=== PATIENT | female | born 1965 | race Caucasian/White ===

== ENCOUNTER → 2018-12-14 10:33 | Outpatient (CLI) | payer OTHER, SELFPAY ==
--- NOTE | 2018-12-14 10:41 | BI_ITS ---
MAMMOGRAPHY - BILATERAL SCREENING REASON FOR EXAM: Female, 53 years old. Routine annual screening examination. PERTINENT HISTORY: Grandmother with breast cancer. TECHNIQUE: Digital bilateral breast haroldo (3D mammographic acquisition) in the CC and MLO projections. 2-D mediolateral oblique (MLO) and craniocaudad (CC) views of both breasts were obtained. CAD: Full Field Digital Mammography with Computer Added Detection was performed. COMPARISON: Comparison is made with prior study January 18, 2017 and February 23, 2015. FINDINGS: Breast Composition: The breasts are heterogeneously dense, which may obscure small masses. There are no dominant masses or suspicious calcifications. No other significant abnormalities are identified. There has been no significant change since the prior study. BI/SCREENING MAMM (CAD), BILAT IMPRESSION: Stable bilateral screening mammogram. Yearly follow-up mammogram recommended. (A) ASSESSMENT CATEGORY: BIRADS Category 1: Negative. A letter regarding these results will be sent to the patient by the facility within 30 days. Approximately 10% of breast cancers are not detected by mammography. A normal mammogram should not delay biopsy of a clinically suspicious abnormality. [id number] Electronically Signed: Eric Tamez, at 12:46 EDT , Service support ,
== END ==
PROVIDERS: Family Provider Family Medicine; PCP Family Medicine; Referring Provider Family Medicine; Visit Provider Family Medicine
DX: Z12.31 Encounter for screening mammogram for malignant neoplasm of breast (principal)
CPT/HCPCS: 77063; 77067

== ENCOUNTER → 2019-05-22 | Outpatient (CLI) | payer OTHER, SELFPAY ==
[2017-01-30 08:10] VITALS: BMI 24.9
[2019-05-22 13:00] LABS: Cholesterol 212 mg/dL (200); High Density Lipoprotein 69 mg/dL; Triglycerides 132 mg/dL; Very Low Density Lipoprotein 26 mg/dL (5-40)
== END | disposition home or self-care (01) ==
LOC: MFPLAB 09:45
PROVIDERS: Family Provider Family Medicine; PCP Family Medicine; Referring Provider Family Medicine; Visit Provider Family Medicine
DX: Z00.00 Encounter for general adult medical examination without abnormal findings (principal)
CPT/HCPCS: 36415; 80061

== ENCOUNTER → 2020-06-15 10:23 | Outpatient (CLI) | payer OTHER, SELFPAY ==
--- NOTE | 2020-06-15 10:25 | BI_ITS ---
MAMMOGRAPHY - BILATERAL SCREENING REASON FOR EXAM: Female, 54 years old. Routine annual screening examination. PERTINENT HISTORY: Mother with breast cancer. Grandmother with breast cancer. TECHNIQUE: Digital bilateral breast kit (3D mammographic acquisition) in the CC and MLO projections. 2-D mediolateral oblique (MLO) and craniocaudad (CC) views of both breasts were obtained. CAD: Full Field Digital Mammography with Computer Added Detection was performed. COMPARISON: Comparison is made with prior study dated 12/14/2018 and 01/18/2017. FINDINGS: Breast Composition: The breasts are heterogeneously dense, which may obscure small masses. There are no dominant masses or suspicious calcifications. Stable small benign appearing bilateral axillary lymph nodes. No other significant abnormalities are identified. There has been no significant change since the prior study. BI/SCREEN MAMM (CAD) W/KIT BILAT IMPRESSION: Stable bilateral screening mammogram. Yearly follow-up mammogram recommended. (A) ASSESSMENT CATEGORY: BIRADS Category 2: Benign. A letter regarding these results will be sent to the patient by the facility within 30 days. Approximately 10% of breast cancers are not detected by mammography. A normal mammogram should not delay biopsy of a clinically suspicious abnormality. [id number] Electronically Signed: Eric Tamez, at 12:24 EDT , Service support ,
== END ==
PROVIDERS: PCP Family Medicine; Referring Provider Family Medicine; Visit Provider Family Medicine
DX: Z12.31 Encounter for screening mammogram for malignant neoplasm of breast (principal)
CPT/HCPCS: 77063; 77067

== ENCOUNTER → 2021-05-26 11:14 | Outpatient (CLI) | payer OTHER, SELFPAY ==
[2021-05-31 16:43] LABS: HPV APTIMA, High Risk Negative (Negative)
== END ==
PROVIDERS: PCP Family Medicine; Referring Provider Family Medicine; Visit Provider Family Medicine
DX: Z12.4 Encounter for screening for malignant neoplasm of cervix (principal)
CPT/HCPCS: 87624; 88175; G0145

== ENCOUNTER → 2021-06-16 08:34 | Outpatient (CLI) | payer OTHER, SELFPAY ==
--- NOTE | 2021-06-16 08:36 | BI_ITS ---
MAMMOGRAPHY - BILATERAL SCREENING REASON FOR EXAM: Female, 55 years old. Routine annual screening examination. PERTINENT HISTORY: Mother with breast cancer. Grandmother with breast cancer. TECHNIQUE: Digital bilateral breast kit (3D mammographic acquisition) in the CC and MLO projections. 2-D mediolateral oblique (MLO) and craniocaudad (CC) views of both breasts were obtained. CAD: Full Field Digital Mammography with Computer Added Detection was performed. COMPARISON: Comparison is made with prior study 06/15/2020 and 12/14/2018. FINDINGS: Breast Composition: The breasts are heterogeneously dense, which may obscure small masses. There are no dominant masses or suspicious calcifications. No other significant abnormalities are identified. There has been no significant change since the prior study. BI/SCRN MAMM (CAD)W/KIT BILAT IMPRESSION: Stable bilateral screening mammogram. Yearly follow-up mammogram recommended. (A) ASSESSMENT CATEGORY: BIRADS Category 1: Negative. A letter regarding these results will be sent to the patient by the facility within 30 days. Approximately 10% of breast cancers are not detected by mammography. A normal mammogram should not delay biopsy of a clinically suspicious abnormality. [id number] Electronically Signed: Eric Tamez MD at 9:14 EDT , Service support ,
== END ==
PROVIDERS: PCP Family Medicine; Referring Provider Family Medicine; Visit Provider Family Medicine
DX: Z12.31 Encounter for screening mammogram for malignant neoplasm of breast (principal)
CPT/HCPCS: 77063; 77067

== ENCOUNTER → 2022-05-30 | Outpatient (CLI) | payer OTHER, SELFPAY ==
[2022-05-30 12:22] LABS: Absolute Lymphocyte Count 2.14 X10^3/uL (0.83-4.51); Absolute Neutrophil Count 3.3 X10^3/uL (2.0-7.7); Basophil# 0.04 X10^3/uL; Basophil% 0.6 % (0-1); Eosinophil# 0.09 X10^3/uL; Eosinophils% 1.5 % (0-5); Hematocrit 42.8 % (37-47); Hemoglobin 13.7 g/dL (12.0-15.0); Lymphocyte # 2.14 X10^3/ul (0.83-4.51); Lymphocyte % 34.7 % (19-41); Mean Corpuscular Volume 96.8 fL (81-99); Monocyte# 0.58 X10^3/uL; Monocyte% 9.4 % (0-10); NRBC Flagged by Analyzer 0 % (0-5); Neutrophil % 53.5 % (47-70); Platelet Count 282 K/mm3 (150-450); RBC Distribution Width CV 12.9 % (11.6-14.6); RBC Distribution Width SD 46.1 fl (35.1-43.9); Red Blood Count 4.42 M/mm3 (4.2-5.4); White Blood Count 6.2 K/mm3 (4.4-11.0)
[2022-05-30 12:51] LABS: ALB/GLOB Ratio 1.3 RATIO (0.9-2.4); AST(SGOT) 13 U/L (15-37); Alanine Aminotransfer ALT/SGPT 27 U/L (13-56); Albumin, Serum 3.9 g/dL (3.2-5.0); Alkaline Phosphatase 62 U/L (45-117); Anion Gap 8 (5-15); BUN 9 mg/dL (7-18); BUN/Creat Ratio 10.7 RATIO (10-20); Calcium,Total 9.5 mg/dL (8.5-10.1); Chloride 107 mmol/L (98-107); Cholesterol 196 mg/dL (200); Creatinine, Serum 0.84 mg/dL (0.55-1.02); EST Glomerular Filtration Rate 74 mL/min (>60); Est Glom Filt Rate - Afr Amer 89 mL/min (>60); Globulin 3.1 g/dL (2.2-4.2); Glucose 96 mg/dL (74-106); High Density Lipoprotein 66 mg/dL; Potassium 4.2 mmol/L (3.5-5.1); Sodium Level 144 mmol/L (136-145); Thyroid Stim Hormone (TSH) 0.65 uIU/mL (0.358-3.74); Triglycerides 107 mg/dL; Very Low Density Lipoprotein 21 mg/dL (5-40)
== END | disposition home or self-care (01) ==
LOC: MFPLAB 09:42
PROVIDERS: PCP Family Medicine; Visit Provider Family Medicine
DX: Z00.00 Encounter for general adult medical examination without abnormal findings (principal); R63.5 Abnormal weight gain; Z72.0 Tobacco use; Z13.220 Encounter for screening for lipoid disorders
CPT/HCPCS: 36415; 80053; 80061; 84443; 85025

== ENCOUNTER → 2022-06-11 | Outpatient (CLI) | payer OTHER, SELFPAY ==
--- NOTE | 2022-06-11 08:44 | CT_ITS ---
EXAM: CT CHEST, LUNG CANCER SCREENING WITHOUT INTRAVENOUS CONTRAST CLINICAL INDICATION: and gt;30y pk over lifetime. active tobacco use TECHNIQUE: Helically acquired images were obtained of the chest without intravenous contrast using low dose (LDCT) lung cancer screening protocol. This CT exam was performed using one or more of the following dose reduction techniques: automated exposure control, adjustment of the mA and/or kV according to patient size, and/or use of iterative reconstruction technique. This report was created using [employer] report generation technology. COMPARISON: None. FINDINGS: LUNGS AND PLEURAL SPACES: Linear scarring/atelectasis noted within the right middle and left lower lobes of the lung. Lungs are otherwise clear. No evidence of lung mass or suspicious pulmonary nodule. No pleural effusion or thickening. No pneumothorax. HEART: Normal. Heart size is normal. No pericardial effusion. No significant coronary artery calcifications. MEDIASTINUM: Normal. No mediastinal or hilar adenopathy. Esophagus is unremarkable. No hiatal hernia. THYROID: Normal. No thyroid lesions. BONES/JOINTS: Normal. No suspicious lytic or blastic abnormality. VASCULATURE: Normal. Thoracic aorta is non-dilated. LYMPH NODES: Normal. No enlarged lymph nodes. LIVER: Multiple low-density liver lesions suggestive of cysts. CT/Low Dose CT Lung Screening IMPRESSION: 1. No evidence of lung mass or nodule. 2. ACR Lung CT Screening Reporting T Data System (Lung-RADS) score: 1 - Recommend continued annual screening with low-dose CT (LDCT) in 12 months. Electronically Signed: Mario Keita MD at 10:29 EDT ,
== END | disposition home or self-care (01) ==
LOC: CT 08:42
PROVIDERS: PCP Family Medicine; Referring Provider Family Medicine; Visit Provider Family Medicine
DX: F17.200 Nicotine dependence, unspecified, uncomplicated (principal)
CPT/HCPCS: 71271

== ENCOUNTER → 2022-06-17 | Outpatient (CLI) | payer OTHER, SELFPAY ==
--- NOTE | 2022-06-17 09:51 | BI_ITS ---
MAMMOGRAPHY - BILATERAL SCREENING REASON FOR EXAM: Female, 56 years old. Routine annual screening examination. PERTINENT HISTORY: Mother with breast cancer. Grandmother with breast cancer. TECHNIQUE: Digital bilateral breast kit (3D mammographic acquisition) in the CC and MLO projections. 2-D mediolateral oblique (MLO) and craniocaudad (CC) views of both breasts were obtained. CAD: Full Field Digital Mammography with Computer Added Detection was performed. COMPARISON: Comparison is made with prior examination dated 06/16/2021 and 06/15/2020. FINDINGS: Breast Composition: The breasts are heterogeneously dense, which may obscure small masses. There are no dominant masses or suspicious calcifications. No other significant abnormalities are identified. There has been no significant change since the prior study. BI/SCRN MAMM (CAD)W/KIT BILAT IMPRESSION: Stable bilateral screening mammogram. Yearly follow-up mammogram recommended. (A) ASSESSMENT CATEGORY: BIRADS Category 1: Negative. A letter regarding these results will be sent to the patient by the facility within 30 days. Approximately 10% of breast cancers are not detected by mammography. A normal mammogram should not delay biopsy of a clinically suspicious abnormality. [id number] Electronically Signed: Erci Tamez MD at 11:08 EDT ,
== END | disposition home or self-care (01) ==
LOC: OPBI 09:50
PROVIDERS: PCP Family Medicine; Visit Provider Family Medicine
DX: Z12.31 Encounter for screening mammogram for malignant neoplasm of breast (principal)
CPT/HCPCS: 77063; 77067

== ENCOUNTER → 2022-09-29 | Outpatient (CLI) | payer OTHER, SELFPAY ==
--- NOTE | 2022-09-29 08:08 | MRI_ITS ---
STUDY: MRI BRAIN WITH AND WITHOUT CONTRAST (ATTENTION INTERNAL AUDITORY CANALS - I.A.C.''s) REASON FOR EXAM: Female, 56 years old. R HEARING LOSS, TINNITUS TECHNIQUE: Standardized multiplanar fat and water weighted pulse sequences were obtained. IV Yes Clariscan was administered for the contrast portion of the examination. COMPARISON: None. FINDINGS: Normal bilateral temporal bones. Normal bilateral internal auditory canals. There is no demonstrated intracanalicular or cisternal vestibular schwannoma (acoustic neuroma). There is no enhancement of the bilateral VIIth or VIIIth cranial nerves. Normal bilateral cochlea, vestibules and semicircular canals. Normal size of the ventricles and extra-axial spaces for the patient''s age. Normal white matter tracts of the supratentorial brain. Normal bilateral basal ganglia. Normal thalami. Normal flow voids within the major intracranial circulation suggesting patency by spin echo criteria. Normal venous enhancement. There is no enhancing intra-axial or extra-axial abnormality. Hypoplastic right sigmoid sinus and right jugular bulbs are developmental variations of normal. There is no extra-axial fluid accumulation. Normal sella turcica, pituitary gland, infundibular stalk, optic chiasm and hypothalamus. Normal tectal plate and pineal gland. Normal midbrain, edmundo and medulla. Normal cerebellum. Normal basal cisterns. No demonstrated orbital abnormality, within the constraints of a routine brain study. Normal visualized paranasal sinuses. Normal calvarium and skull base. Normal visualized soft tissue structures. Normal visualized upper cervical spine. MRI/Brain W/WO Contrast IMPRESSION: Normal unenhanced and enhanced MRI of the bilateral internal auditory canals (I.A.C''s). COMMENT: If right-sided tinnitus is pulsatile and dural AV fistula is a clinical consideration, cerebral arteriogram with bilateral external carotid arteriogram will be more helpful for further evaluation. Electronically Signed: Erik Hopkins MD at 9:35 EST ,
== END | disposition home or self-care (01) ==
PROVIDERS: PCP Family Medicine; Referring Provider Otolaryngology; Visit Provider Otolaryngology
DX: H90.41 Sensorineural hearing loss, unilateral, right ear, with unrestricted hearing on the contralateral side (principal)
CPT/HCPCS: 70553; A9575

== ENCOUNTER → 2023-06-20 | Outpatient (CLI) | payer OTHER, SELFPAY ==
--- NOTE | 2023-06-20 08:55 | BI_ITS ---
MAMMOGRAPHY - BILATERAL SCREENING REASON FOR EXAM: Female, 57 years old. Routine annual screening examination. PERTINENT HISTORY: Mother with breast cancer. Grandmother with breast cancer. History of prior left breast biopsy. TECHNIQUE: Digital bilateral breast kit (3D mammographic acquisition) in the CC and MLO projections. 2-D mediolateral oblique (MLO) and craniocaudad (CC) views of both breasts were obtained. CAD: Full Field Digital Mammography with Computer Added Detection was performed. COMPARISON: Comparison is made with prior study dated June 17, 2022 and June 16, 2021. FINDINGS: Breast Composition: The breasts are heterogeneously dense, which may obscure small masses. There are no dominant masses or suspicious calcifications. Stable small benign-appearing bilateral axillary lymph nodes. No other significant abnormalities are identified. There has been no significant change since the prior study. BI/SCRN MAMM (CAD)W/KIT BILAT IMPRESSION: Stable bilateral screening mammogram. Yearly follow-up mammogram recommended. (A) ASSESSMENT CATEGORY: BIRADS Category 2: Benign. A letter regarding these results will be sent to the patient by the facility within 30 days. Approximately 10% of breast cancers are not detected by mammography. A normal mammogram should not delay biopsy of a clinically suspicious abnormality. [id number] Electronically Signed: Eric Tamez MD at 10:07 EDT ,
== END | disposition home or self-care (01) ==
LOC: OPBI 08:54
PROVIDERS: PCP Family Medicine; Referring Provider Family Medicine; Visit Provider Family Medicine
DX: Z12.31 Encounter for screening mammogram for malignant neoplasm of breast (principal)
CPT/HCPCS: 77063; 77067

== ENCOUNTER → 2023-10-18 | Outpatient (CLI) | payer OTHER, SELFPAY ==
--- OUTSIDE RECORDS SUMMARY | 2023-10-18 07:53 | XMS RPT_ITS | CCD ---
Author Name Unknown Address [address] [place] [address] Organization [facility] Care Team Providers Care Lining Setter Name Role Phone Riya Barnes Unavailable Jamal Zimmerman Primary Care Provider Allergies Allergy Classification Reported Allergen(s) Allergy Type Date of Onset Reaction(s) Facility (1 source) predniSONE drug allergy 7 Rapid heart rate [place] [employer] [facility] Work Phone: Medications Completed/Discontinued Medications Medication Drug Class(es) Dates Sig (Normalized) Sig (Original) CALCIUM CARB-CHOLECALCIFEROL (1 source) take 1 tablet by kamaljit th once daily CALCIUM-VITAMIN D3 600-500 MG-UNIT CAPS One tablet by mouth daily CALCIUM CARB-CHOLECALCIFEROL [id number] Rebecca Jones MD MULTIPLE VITAMINS-MINERALS (2 sources) take 1 tablet by kamaljit th once daily MULTIVITAMIN WOMEN TABS One tablet by mouth daily MULTIPLE VITAMINS-MINERALS [id number] Rebecca Jones MD Problems Problem Classification Problem Date Documented Da te Episodic/Chronic Unclassified (1 source) Screening for malignant neoplasm of colon ; Translations: [Encounter for screening for malignant neoplasm of colon] Onset: 01-04-2017 01-04-2017 Results Test Name Value Interpretation Reference Range Facil ity Vital Signs Date Time Vital Sign Value Performing Clinician Facility 01-04-2017 13:03-0400 BMI (Body Mass Index) 25.07 kg/m2 Riya Barnes [employer] [facility] Work Phone: 01-04-2017 13:03-0400 Body Temperature 97.7 [degF] Riya Barnes [facility] [employer] [facility] Work Phone: 01-04-2017 13:03-0400 BP Diastolic 71 mm[Hg] Riya Barnes [place] [employer] [facility] Work Phone: 01-04-2017 13:03-0400 BP Systolic 105 mm[Hg] Riya Barnes [place] [employer] [facility] Work Phone: 01-04-2017 13:03-0400 Height 166.37 cm Riya Barnes [place] [employer] [facility] Work Phone: 01-04-2017 13:03-0400 Pulse (Heart Rate) 77 /min Riya Barnes [facility] [employer] [employer] [facility] Work Phone: 01-04-2017 13:03-0400 Pulse Oximetry 98 % Riya Barnes [place] [employer] [facility] Work Phone: 01-04-2017 13:03-0400 Respiratory Rate 16 /min Riya Barnes [place] [employer] [facility] Work Phone: 01-04-2017 13:03-0400 Weight 69.4 kg Riya Barnes [place] [employer] [facility] Work Phone: Encounters Encounter Date Encounter Type Care Provider Facility Start: 03-28-2011 End: 03-28-2011 Patient encounter procedure Sneha Fuller Work Phone: [facility] Start: 03-28-2011 Results Only Sneha Fuller Work Phone: [facility] Procedures Date Procedure Procedure Detail Performing Clinician Start: 04-20-2011 CONVERTED SURGICAL PATHOLOGY Sneha Fuller Work Phone: Start: 03-28-2011 CONVERTED SURGICAL PATHOLOGY Sneha Fuller Work Phone: Plan of Treatment Date Care Activity Detail Author Start: 05-19-2020 Influenza vaccination INFLUENZA (#1) [facility] Start: 01-30-2017 End: 01-30-2017 Appointment Appointment [employer] [facility] Work Phone: Start: 01-04-2017 End: 01-04-2017 [facility] Work Phone: Start: 01-04-2017 End: 01-04-2017 Follow Up Appt Other Follow Up Appt Other [employer] Work Phone: Start: 2014 SHINGRIX VACCINE (1 of 2) SHINGRIX VACCINE (1 of 2) [facility] Start: 2014 Tuberculosis screening COLORECTAL CANCER SCREENING,SEE MODIFIER [facility] Start: 2009 DIABETES SCREEN DIABETES SCREEN [facility] Start: 2009 LIPID SCREEN LIPID SCREEN [facility] Start: 2004 Mammography MAMMOGRAM [facility] Start: 1994 HPV TESTING HPV TESTING [facility] Start: 1985 PAP TESTING PAP TESTING [facility] Start: 1983 Urine microalbumin profile DTAP,TDAP,TD (1 - Tdap) [facility] Start: 1982 HEPATITIS C SCREENING HEPATITIS C SCREENING [facility] Start: 1982 HIV SCREENING HIV SCREENING [facility] Social History Date Type Detail Facility Tobacco smoking status NHIS Unknown if ev er smoked [facility] Sex Assigned At Not on file [facility] Additional Source Comments Source Comments (unrecognize d section and content) In the event this informatio n is protected by the Federal Confidentiality of Alcohol and Drug Abuse Patient Records regulations: The Federal rules restrict any use of the information to criminally investigate or prosecute any alcohol or drug abuse patient.[facility] FOR RECORDS PERTAINING TO PATIENTS WHO ARE OR HAVE BEEN ENROLLED IN A CHEMICAL DEPENDENCY/SUBSTANCEABUSE PROGRAM, SOME INFORMATION MAY BE OMITTED. This clinical summary was aggregated from multiple sources. Caution should be exercised in using it in the provision of clinical care. This summary normalizes information from multiple sources, and as a consequence, information in this document may materially change the coding, format and clinical context of patient data. In addition, data may be omitted in some cases. CLINICAL DECISIONS SHOULD BE BASED ON THE PRIMARY CLINICAL RECORDS. [facility] [employer] [facility]. provides no warranty or guarantee of the accuracy or completeness of information in this document.
--- NOTE | 2023-10-18 08:00 | CT_ITS ---
STUDY: LOW DOSE CT LUNG CANCER SCREENING REASON FOR EXAM: Female, 57 years old. STOPPED TOBACCO/CIGARETTES 2020, and gt; 30 PK YR RADIATION DOSAGE (If Supplied By Facility): CTDIvol = ( 2.39 ) mGy, DLP = ( 83.10 ) mGycm TECHNIQUE: No contrast was administered. Low dose technique was utilized (average mAS-38 and kVp 120). 1.25 mm axial source images with a slice interval of 1.25-mm were reconstructed in lung windows. 2.5 mm axial source images with a slice interval of 2.5-mm were reconstructed in lung windows. 5.0 mm axial source images with a slice interval of 5.0-mm were reconstructed in soft tissue windows. COMPARISON: Comparison is made with prior examination dated June 11, 2022. NODULES: No suspicious nodules seen. Emphysema: Mild degree of emphysematous changes. Stable mild linear scarring in the right middle lobe and left lower lobe. Endobronchial lesion: None Aorta: Unremarkable CORONARY ARTERIES: Coronary artery calcification is seen. Heart: Unremarkable Pulmonary artery: Mediastinal nodes: Other chest and abdominal findings: Hepatic cysts. CT/Low Dose CT Lung Screening IMPRESSION: Lung-RADS category 2 - Continue annual screening with LDCT in 12 months. IMPORTANT NOTES FOR USE: ACR Lung-RADS Version 1.1 Assessment Categories Release Date: 2018 Category: Coded 0-4 bases on nodule(s) with highest degree of suspicion. Negative screen is defined as categories 1 and 2; a positive screen is defined as categories 3 and 4. Category 3 and 4A nodules that are unchanged on interval CT should be coded as category 2, and individuals returned to screening in 12 months. Category 4X: Category 3 or 4 nodules with additional imaging findings that increase the suspicion of lung cancer, such as spiculation, GGN that doubles in size in 1 year, enlarged lymph notes, etc. Category Modifiers: S (significant finding unrelated to lung cancer) Electronically Signed: Eric Tamez MD at 10:22 EST ,
== END | disposition home or self-care (01) ==
LOC: CT 07:42
PROVIDERS: PCP Family Medicine; Referring Provider Family Medicine; Visit Provider Family Medicine
DX: Z12.2 Encounter for screening for malignant neoplasm of respiratory organs (principal); F17.211 Nicotine dependence, cigarettes, in remission
CPT/HCPCS: 71271

== ENCOUNTER 2023-11-20 06:40 | Day surgery (SDC) | payer OTHER, SELFPAY ==
--- OUTSIDE RECORDS SUMMARY | 2023-11-20 06:43 | XMS RPT_ITS | CCD ---
Author Name Unknown Address [address] [place] [address] Organization [facility] Care Team Providers Care Flight Teacher Name Role Phone Riya Barnes Unavailable Jamal Zimmerman Primary Care Provider Allergies Allergy Classification Reported Allergen(s) Allergy Type Date of Onset Reaction(s) Facility (1 source) predniSONE drug allergy 7 Rapid heart rate [place] [employer] [facility] Work Phone: Medications Completed/Discontinued Medications Medication Drug Class(es) Dates Sig (Normalized) Sig (Original) CALCIUM CARB-CHOLECALCIFEROL (1 source) take 1 tablet by kamaljit th once daily CALCIUM-VITAMIN D3 600-500 MG-UNIT CAPS One tablet by mouth daily CALCIUM CARB-CHOLECALCIFEROL [id number] Rebecca Jones MD MULTIPLE VITAMINS-MINERALS (2 sources) take 1 tablet by kamaljit th once daily MULTIVITAMIN WOMEN TABS One tablet by mouth daily MULTIPLE VITAMINS-MINERALS [id number] Rebecca Jones MD Problems Problem Classification Problem Date Documented Da te Episodic/Chronic Unclassified (1 source) Screening for malignant neoplasm of colon ; Translations: [Encounter for screening for malignant neoplasm of colon] Onset: 01-04-2017 01-04-2017 Results Test Name Value Interpretation Reference Range Facil ity Vital Signs Date Time Vital Sign Value Performing Clinician Facility 01-04-2017 13:03-0400 BMI (Body Mass Index) 25.07 kg/m2 Riya Barnes [employer] [facility] Work Phone: 01-04-2017 13:03-0400 Body Temperature 97.7 [degF] Riya Barnes [facility] [email or web address] [facility] Work Phone: 01-04-2017 13:03-0400 BP Diastolic 71 mm[Hg] Riya Barnes [place] [employer] [facility] Work Phone: 01-04-2017 13:03-0400 BP Systolic 105 mm[Hg] Riya Barnes [place] [employer] [facility] Work Phone: 01-04-2017 13:03-0400 Height 166.37 cm Riya Barnes [place] [employer] [facility] Work Phone: 01-04-2017 13:03-0400 Pulse (Heart Rate) 77 /min Riya Barnes [facility] [email or web address] [facility] Work Phone: 01-04-2017 13:03-0400 Pulse Oximetry 98 % Riya Barnes [place] [employer] [facility] Work Phone: 01-04-2017 13:03-0400 Respiratory Rate 16 /min Riya Barnes [place] [email or web address] [facility] Work Phone: 01-04-2017 13:03-0400 Weight 69.4 kg Riya Barnes [place] [employer] [facility] Work Phone: Encounters Encounter Date Encounter Type Care Provider Facility Start: 03-28-2011 End: 03-28-2011 Patient encounter procedure Sneha Fuller Work Phone: [facility] Start: 03-28-2011 Results Only Sneha Fuller Work Phone: [facility] Procedures Date Procedure Procedure Detail Performing Clinician Start: 04-20-2011 CONVERTED SURGICAL PATHOLOGY Sneha Fuller Work Phone: Start: 03-28-2011 CONVERTED SURGICAL PATHOLOGY Sneha Fuller Work Phone: Plan of Treatment Date Care Activity Detail Author Start: 05-19-2020 Influenza vaccination INFLUENZA (#1) [facility] Start: 01-30-2017 End: 01-30-2017 Appointment Appointment [employer] [facility] [email or web address] [facility] Work Phone: Start: 01-04-2017 End: 01-04-2017 Diagnostic colonoscopy Colonoscopy [facility] [email or web address] [facility] Work Phone: Start: 01-04-2017 End: 01-04-2017 Follow Up Appt Other Follow Up Appt Other [employer] Work Phone: Start: 2014 SHINGRIX VACCINE (1 of 2) SHINGRIX VACCINE (1 of 2) [facility] Start: 2014 Tuberculosis screening COLORECTAL CANCER SCREENING,SEE MODIFIER [facility] Start: 2009 DIABETES SCREEN DIABETES SCREEN [facility] Start: 2009 LIPID SCREEN LIPID SCREEN [facility] Start: 2004 Mammography MAMMOGRAM [facility] Start: 1994 HPV TESTING HPV TESTING [facility] Start: 1985 PAP TESTING PAP TESTING [facility] Start: 1983 Urine microalbumin profile DTAP,TDAP,TD (1 - Tdap) [facility] Start: 1982 HEPATITIS C SCREENING HEPATITIS C SCREENING [facility] Start: 1982 HIV SCREENING HIV SCREENING [facility] Social History Date Type Detail Facility Tobacco smoking status NHIS Unknown if ev er smoked [facility] Sex Assigned At Not on file [facility] Additional Source Comments Source Comments (unrecognize d section and content) In the event this informatio n is protected by the Federal Confidentiality of Alcohol and Drug Abuse Patient Records regulations: The Federal rules restrict any use of the information to criminally investigate or prosecute any alcohol or drug abuse patient.[facility] FOR RECORDS PERTAINING TO PATIENTS WHO ARE [...] BE BASED ON THE PRIMARY CLINICAL RECORDS. [facility] [employer] provides no warranty or guarantee of the accuracy or completeness of information in this document.
--- NOTE | 2023-11-20 07:02 | HP.PCM_ITS ---
[facility] - General General Date of Service: 11/20/23 HPI Narrative NESTOR SIFUENTES, is a 58 F who presents presents for colonoscopy due to history of colon polyps. Patient last colonoscopy was October 2016 patient 2 polyps at that time and diverticulosis. Patient's father did have colon cancer at age 72. Patient's bowel movements daily denies any blood. Patient denies any chronic abdominal pain/nausea/vomiting/reflux. [facility] Medical History (Updated 11/20/23 @ 07:[address] Rebecca Jones MD) Diverticulosis of colon Family history of colon cancer in father Former smoker GERD (gastroesophageal reflux disease) Non-smoker Personal history of colonic polyps Post-menopausal Wears dentures Wears glasses Home Medications multivitamin (Multiple Vitamins tablet) 1 ea PO DAILY 01/25/17 [History Last Taken 11/19/23] lactobacillus combination no.4 3 billion cell capsule (Probiotic) 3,000 mmu cells PO DAILY 10/09/23 [History Last Taken 11/19/23] Allergy/AdvReac Type Severity Reaction Status Date / Time prednisone AdvReac Other Verified 11/20/23 06:52 Family History (Updated 10/09/23 @ 12:50 by Raisa Alvarez) Father Colon cancer Mother Breast cancer Surgical History Hx of colonoscopy Social History (Updated 10/09/23 @ 12:51 by Raisa Alvarez) household members: spouse current occupational status: employed current occupation: [employer] Smoking Status: Former smoker substance use type: does not use Past Medical/Surgical History Planned Operation Planned Operative Procedure/s: COLONOSCOPY-OA S.O.S: No Previous Hospitalizations/Surgeries HX Hospitalizations: No HX of Surgeries: 1985 Any Problems With Anesthesia: No You/Your Family Experience Fever (Hyperthermia) With Anes: No Cholinesterase deficiency: No Cardiovascular Hx Chest Pain within Last 2 months: No Hx of Irregular Heartbeat and/or Afib: No Hx Heart Attack: No Hx Congestive Heart Failure: No Hx Rheumatic Fever: No Hx Hypertension: No Hx Internal Defibrillator: No Hx Pacemaker: No Hx Cardiac Catheterization: No Hx Cardiac Surgery/Stents/Etc.: No Hx Stress Test: No Hx Pain in Legs when Walking/Leg Cramps: No Respiratory Chronic Cough: No HX of Shortness of Breath: No Hoarseness: No Hx Chronic Obstructive Pulmonary Disease (COPD): No Hx Asthma: No Hx Emphysema: No Hx Sleep Apnea: No Hx Respiratory Tract Infection/Cold (presently): No Do You Snore Loudly (louder than talking or can be heard): No Do You Often Feel Tired/ Fatigued/ Sleepy Dring Daytime?: No Has Anyone Observed You Stop Breathing During Sleep?: No Result (for STOP score): Negative Smoking Status: Former smoker Gastrointestinal Hx Gastrointestinal Disorders: No Hx Gastrointestinal Bleed: No Hx Ulcer: No Hx Hiatal Hernia: No Difficulty Chewing/Swallowing: No Special diet followed at home: No Hx Unplanned Weight Loss of 20#: No HX Unplanned Weight Gain of 20#: No Neurological Hx Seizures: No HX Syncope/Blackout Spells/Unconsciousness: No Hx Transient Ischemic Attacks (TIA): No Hx Multiple Sclerosis: No Hx Parkinson's Disease: No Hx Head/Neck Injury: No Hx Headaches: No Hx Back Injury/Pain: No Recent Onset of Speech Difficulty: No Restless Legs: No Does patient have nerve stimulator: No Blood Disorder Hx Leukemia: No Bleeding Tendencies: No Hx Deep Vein Thrombosis: No Hx High Cholesterol: No Blood Transmitted Disease: No Hx Hepatitis: No Hx Cirrhosis: No Hx Anemia: No Hx Blood Disorders: No Reproduction Is Patient Lactating: No Hx Hysterectomy: No Hx Tubal Ligation: No Are You Post Menopause: Yes Genitourinary Hx Renal Disease: No Musculoskeletal Hx Arthritis: No Hx Rheumatoid Arthritis: No Hx Gout: No Recent Onset of an Orthopedic Problem: No Endocrine Hx Diabetes: No Thyroid Disease: No Hx Steroid Therapy: No Psycho/Social Hx Substance Use: No Hx Alcohol Use: No Hx Anxiety: No Hx Depression: No Mental Illness: No Hx Dementia: No Miscellaneous Hx Cancer: No Recent Exposure to Contagious Disease: No Hx of C-Diff: No Any Loose Teeth: No (DENTURES) Allergies prednisone Adverse Reaction (Verified 11/20/23 06:52) Other VERY FAST HEART RATE Discharge Is Pt Admitted From a Group Home, or a Intermediate: No After D/C, Where Do you Plan to Go: Return Home Physical Exam Const alert, oriented x3 and no apparent distress HEENT normocephalic and head/scalp atraumatic Resp normal respiratory effort Cardio regular rate GI soft to palpation and non-tender; Negative for non-distended Palpation: Negative for guarding Extremity no clubbing, cyanosis or edema Skin no rashes or lesions noted Neuro CN's II-XII intact bilaterally Psych mental status grossly normal Assessment & Plan Assessment/Plan (1) Personal history of colonic polyps: Surgery Risks - Colonoscopy I discussed with the patient the risks of the procedure: Yes Risks Include but are not Limited To: Risks include but are not limited to: Bleeding, perforation requiring further surgery, inability to complete colonoscopy requiring barium enema.
[2023-11-20 07:07] VITALS: BP 116/70; PULSE 68; RESP 17; TEMP 35.9; O2SAT 100; BMI 27.8
[2023-11-20] MEDS: Lactated Ringers 1,000 ML 15 ML IV (07:07)
--- NOTE | 2023-11-20 08:15 | COLBX_PTH ---
PATHOLOGY RESULTS PATIENT: NESTOR SIFUENTES LOC: EN U#:[id number] AGE/SX: 58/F ROOM: RE11/20/[address]: Dr. Rebecca Jones MD : 1965 BED: DIS: 11/20/2023 SPEC #: [id number] RECD: 11/20/23 12:44 STATUS: SOFY NAILA #: [id number] JUDAH: 11/20/23 08:[address]: Rebecca Jones DEPT: SURGICAL PATHOLOGY RECD BY: Velia Khoury ENTERED: 11/20/23 12:45 SP TYPE: COLON BX OTHR DR: Dr. Milton Blanco MD Tissues: Rectum, NOS Rectum, NOS Procedures: Surgery Specimen Level IV HEADER OPERATION: Colonoscopy, polypectomy, biopsy PRE-OP DIAGNOSIS: History of colonic polyps TISSUE SUBMITTED: A - Rectal polyp, B - Rectal polyp biopsy MICROSCOPIC DIAGNOSIS A. Rectal polyp, polypectomy: Hyperplastic polyp. B. Rectal polyp, biopsy: Fragments of hyperplastic polyp. SJ:chana 11/21/2023 MICROSCOPIC DESCRIPTION Slides are reviewed. GROSS DESCRIPTION A - Received in fixative is one container labeled with the patient's name and designated rectal polyp. The specimen consists of one irregular fragment of light bae soft tissue that measures 0.5 x 0.5 x 0.1 cm. The specimen is totally submitted in one cassette. B - Received in fixative is one container labeled with the patient's name and designated rectal polyp biopsy. The specimen consists of multiple irregular fragments of light bae soft tissue that in aggregate measure 1.0 x 0.5 x 0.1 cm. The specimen is totally submitted in one cassette. / AM:chana 11/20/2023 TC:1 CPT: 07534 x2
[2023-11-20 08:50] VITALS: BP 101/65; BP 116/70; PULSE 67; RESP 14; TEMP 36; O2SAT 96
--- NOTE | 2023-11-20 08:53 | OP.COLON_ITS ---
Patient Name: Skye Espinosa Procedure Date: 11/20/2023 8:11 AM Date of : 1965 Age: 58 Procedure: Colonoscopy Indications: High risk colon cancer surveillance: Personal history of colonic polyps Providers: Rebecca Jones MD Referring MD: Milton Blanco Medicines: Monitored Anesthesia Care Patient Profile: This is a 58 year old female. Last Colonoscopy: 2016. Complications: No immediate complications. Procedure: Pre-Anesthesia Assessment: - Prior to the procedure, a History and Physical was performed, and patient medications and allergies were reviewed. The patient's tolerance of previous anesthesia was also reviewed. The risks and benefits of the procedure and the sedation options and risks were discussed with the patient. All questions were answered, and informed consent was obtained. Prior Anticoagulants: The patient has taken no anticoagulant or antiplatelet agents. ASA Grade Assessment: Per anesthesia. After reviewing the risks and benefits, the patient was deemed in satisfactory condition to undergo the procedure. After I obtained informed consent, the scope was passed under direct vision. Throughout the procedure, the patient's blood pressure, pulse, and oxygen saturations were monitored continuously. The Colonoscope was introduced through the anus and advanced to the cecum, identified by the appendiceal orifice, ileocecal valve and palpation. The colonoscopy was performed without difficulty. The patient tolerated the procedure well. The quality of the bowel preparation was good. Scope In: 8:21:53 AM Scope Withdrawal Time 0 hours 13 minutes 39 seconds Scope Out: 8:44:28 AM Total Procedure Duration Time 0 hours 22 minutes 35 seconds Findings: Hemorrhoids were found on perianal exam. A less than 5 mm polyp was found in the rectum. The polyp was semi-pedunculated. The polyp was removed with a hot snare. Resection and retrieval were complete. Four sessile polyps were found in the rectum. The polyps were 2 to 3 mm in size. These polyps were removed with a cold biopsy forceps. Resection and retrieval were complete. A few small-mouthed diverticula were found in the sigmoid colon. The exam was otherwise without abnormality. Non-bleeding internal hemorrhoids were found. The hemorrhoids were Grade I (internal hemorrhoids that do not prolapse). Impression: - Hemorrhoids found on perianal exam. - One less than 5 mm polyp in the rectum, removed with a hot snare. Resected and retrieved. - Four 2 to 3 mm polyps in the rectum, removed with a cold biopsy forceps. Resected and retrieved. - Diverticulosis in the sigmoid colon. - The examination was otherwise normal. - Non-bleeding internal hemorrhoids. Recommendation: - Discharge patient to home. - High fiber diet. - Continue present medications. - Await pathology results. - Repeat colonoscopy in 5-10 years for surveillance based on pathology results. Procedure Code(s): --- Professional --- 89407, PT, Colonoscopy, flexible; with removal of tumor(s), polyp(s), or other lesion(s) by snare technique 17358, 58, Colonoscopy, flexible; with biopsy, single or multiple Diagnosis Code(s): --- Professional --- D12.8, Benign neoplasm of rectum Z86.010, Personal history of colonic polyps K64.9, Unspecified hemorrhoids K57.30, Diverticulosis of large intestine without perforation or abscess without bleeding CPT copyright 2021 [employer]. All rights reserved. The codes documented in this report are preliminary and upon electric motor controls assembler review may be revised to meet current compliance requirements. MD Rebecca Gallegos MD 11/20/2023 8:53:00 AM This report has been signed electronically. Number of Addenda: 0 Note Initiated On: 11/20/2023 8:11 AM
--- NOTE | 2023-11-20 08:53 | OP.CCLET_ITS ---
11/20/2023 Milton Blanco [address] [place] [address] Re : Colonoscopy procedure for Skye Espinosa Dear Dr. Blanco This procedure was performed on Monday, November 20, 2023. My impressions and recommendations are as follows: Impressions : - Hemorrhoids found on perianal exam. - One less than 5 mm polyp in the rectum, removed with a hot snare. Resected and retrieved. - Four 2 to 3 mm polyps in the rectum, removed with a cold biopsy forceps. Resected and retrieved. - Diverticulosis in the sigmoid colon. - The examination was otherwise normal. - Non-bleeding internal hemorrhoids. Recommendations : - Discharge patient to home. - High fiber diet. - Continue present medications. - Await pathology results. - Repeat colonoscopy in 5-10 years for surveillance based on pathology results. My findings are described in the full procedure note, which is enclosed. If I can be of further assistance, please feel free to contact me at Doctor phone number(s): , Work: . Sincerely, MD Rebecca Gallegos MD 11/20/2023 8:53:00 AM This report has been signed electronically.
[2023-11-20 08:55] VITALS: BP 116/70; BP 94/70; PULSE 66; RESP 16; O2SAT 99
[2023-11-20 09:00] VITALS: BP 116/70; BP 94/68; PULSE 62; RESP 16; O2SAT 98
[2023-11-20 09:07] VITALS: BP 116/70; BP 99/70; PULSE 61; RESP 16; TEMP 36; O2SAT 98
[2023-11-20 09:25] VITALS: BP 116/70
== END 2023-11-20 09:39 | disposition home or self-care (01) ==
LOC: EN 06:41 → AC 06:43
PROVIDERS: PCP Family Medicine; Referring Provider Family Medicine; Visit Provider Surgery
PROC: 0DJD8ZZ Inspection of Lower Intestinal Tract, Via Natural or Artificial Opening Endoscopic (ICD-10-PCS; CPT 45378; principal; 2023-11-20 08:10)
DX: Z12.11 Encounter for screening for malignant neoplasm of colon (principal); K57.30 Diverticulosis of large intestine without perforation or abscess without bleeding; K62.1 Rectal polyp; K64.0 First degree hemorrhoids; Z86.010 Personal history of colon polyps; Z87.891 Personal history of nicotine dependence; Z80.0 Family history of malignant neoplasm of digestive organs
CPT/HCPCS: 45385; 45380; 88305; J7120

== ENCOUNTER → 2024-07-10 | Outpatient (CLI) | payer OTHER, SELFPAY ==
--- NOTE | 2024-07-10 15:22 | BI_ITS ---
MAMMOGRAPHY - BILATERAL SCREENING REASON FOR EXAM: Female, 58 years old. Routine annual screening examination. PERTINENT HISTORY: Mother with breast cancer. Remote left needle breast biopsy. TECHNIQUE: Digital bilateral breast kit (3D mammographic acquisition) in the CC and MLO projections. 2-D mediolateral oblique (MLO) and craniocaudad (CC) views of both breasts were obtained. CAD: Full Field Digital Mammography with Computer Added Detection was performed. COMPARISON: Comparison is made with prior study June 20, 2023 and June 17, 2022. FINDINGS: Breast Composition: The breasts are heterogeneously dense, which may obscure small masses. There are no dominant masses or suspicious calcifications. No other significant abnormalities are identified. There has been no significant change since the prior study. BI/SCRN MAMM (CAD)W/KIT BILAT IMPRESSION: Stable bilateral screening mammogram. Yearly follow-up mammogram recommended. (A) ASSESSMENT CATEGORY: BIRADS Category 1: Negative. A letter regarding these results will be sent to the patient by the facility within 30 days. Approximately 10% of breast cancers are not detected by mammography. A normal mammogram should not delay biopsy of a clinically suspicious abnormality. [id number] Electronically Signed: Eric Tamez MD at 8:37 EDT ,
== END | disposition home or self-care (01) ==
LOC: OPBI 15:20
PROVIDERS: PCP Family Medicine; Referring Provider Family Medicine; Visit Provider Family Medicine
DX: Z12.31 Encounter for screening mammogram for malignant neoplasm of breast (principal)
CPT/HCPCS: 77063; 77067

== ENCOUNTER → 2024-10-22 | Outpatient (CLI) | payer OTHER, SELFPAY ==
[2024-10-22 10:13] LABS: Absolute Lymphocyte Count 2.56 X10^3/uL (0.83-4.51); Absolute Neutrophil Count 3.4 X10^3/uL (2.0-7.7); Basophil# 0.05 X10^3/uL; Basophil% 0.7 % (0-1); Eosinophil# 0.15 X10^3/uL; Eosinophils% 2.2 % (0-5); Hematocrit 43.5 % (37-47); Hemoglobin 13.4 g/dL (12.0-15.0); Lymphocyte # 2.56 X10^3/ul (0.83-4.51); Lymphocyte % 37.6 % (19-41); Mean Corp Hgb Conc 30.8 g/dL (32-36); Mean Corpuscular Hgb 29.4 pg (27.0-32.0); Mean Corpuscular Volume 95.4 fL (81-99); Mean Platelet Vol. 9.7 fl (6.2-12.0); Monocyte# 0.63 X10^3/uL; Monocyte% 9.3 % (0-10); NRBC Flagged by Analyzer 0 % (0-5); Neutrophil # 3.41 X10^3/uL (2.7-7.7); Neutrophil % 50.1 % (47-70); Platelet Count 286 K/mm3 (150-450); RBC Distribution Width CV 13.4 % (11.6-14.6); Red Blood Count 4.56 M/mm3 (4.2-5.4); White Blood Count 6.8 K/mm3 (4.4-11.0)
[2024-10-22 10:49] LABS: ALB/GLOB Ratio 1.1 RATIO (0.9-2.4); AST(SGOT) 18 U/L (15-37); Alanine Aminotransfer ALT/SGPT 28 U/L (13-56); Albumin, Serum 3.8 g/dL (3.2-5.0); Alkaline Phosphatase 66 U/L (45-117); Anion Gap 6 (5-15); BUN 13 mg/dL (7-18); BUN/Creat Ratio 15.6 RATIO (10-20); Calcium,Total 9.3 mg/dL (8.5-10.1); Chloride 107 mmol/L (98-107); Cholesterol 236 mg/dL (200); Creatinine, Serum 0.84 mg/dL (0.55-1.02); EST Glomerular Filtration Rate 74 mL/min (>60); Est Glom Filt Rate - Afr Amer 90 mL/min (>60); Globulin 3.4 g/dL (2.2-4.2); Glucose 91 mg/dL (74-106); High Density Lipoprotein 73 mg/dL; Potassium 3.9 mmol/L (3.5-5.1); Protein, Total 7.2 g/dL (6.4-8.2); Sodium Level 141 mmol/L (136-145); Triglycerides 121 mg/dL; Very Low Density Lipoprotein 24 mg/dL (5-40)
== END | disposition home or self-care (01) ==
LOC: MFPLAB 08:06
PROVIDERS: PCP Family Medicine; Referring Provider Family Medicine; Visit Provider Family Medicine
DX: Z00.01 Encounter for general adult medical examination with abnormal findings (principal); K21.9 Gastro-esophageal reflux disease without esophagitis; F17.200 Nicotine dependence, unspecified, uncomplicated
CPT/HCPCS: 36415; 80053; 80061; 85025

== ENCOUNTER → 2024-10-30 | Outpatient (CLI) | payer OTHER, SELFPAY ==
--- NOTE | 2024-10-30 15:53 | CT_ITS ---
PROCEDURE: LOW DOSE CT LUNG SCREENING REASON FOR EXAM: Lung cancer screening. Half pack smoking per day for 46 years. Tobacco abuse. TECHNIQUE: Low Dose CT Lung Screening without contrast COMPARISON: CT low-dose lung cancer screening from 10/18/2023. FINDINGS: No suspicious pulmonary nodule is identified. There is stable fissural nodularity/scarring in the right lower lobe along the right major fissure measuring 9 mm (image 141 of 257). There is stable linear scarring in the right middle lobe and left lower lobe as well as the right lung base. Mild emphysematous changes are present. There is mild biapical scarring. No acute consolidation or pneumothorax is present. Central airway is patent. Cardiac size is within normal limits. Thoracic aorta demonstrates a normal caliber. No significant coronary artery calcifications are present. No lymphadenopathy is present. No pericardial or pleural effusion is identified. Upper abdomen demonstrates stable multiple hepatic cysts. Degenerative changes are identified. There is dextroscoliosis of the midthoracic spine. CT/Low Dose CT Lung Screening IMPRESSION: 1. No suspicious pulmonary nodule. 2. Stable fissural nodularity/scarring in the right lower lobe along the right major fissure. 3. Stable linear scarring in the bilateral lungs. 4. Hepatic cysts. Lung-RADS 2, benign. Recommendation: Annual CT low-dose lung screening. One or more dose reduction techniques were used (e.g., Automated exposure contr ol, adjustment of the mA and/or kV according to patient size, use of iterative reconstruction technique). The following information is provided for reference:Lung-RADS 2021 Assessment C ategories. Additional information involving Lung-RADS is available at www.acr.org. 0-INCOMPLETE 1-NEGATIVE:No nodules or definitely benign nodules. Complete, central, popcorn , or centric ring calcifications OR fat containing 2-BENIGN APPEARANCE (based on imaging features or indolent behavior). Juxtaple ural nodule: < 10mm AND solid; smooth margins; oval, lentiform, or triangular shape Solid nodule: <6mm at baseline or new< 4mm Part solid Nodule: < 6mm total mean diameter at baseline Nonsolid nodule:(GGN) < 30mm OR >=30mm stable or slowly growing Airway nodule, subsegmental at baseline, new, or stable Category 3 nodule stabl e or decreased in size at 6-month follow-up CT or Category 3 or 4A nodules that resolve on follow-up OR category 4B findings prov en to be benign following diagnotic work up. 3 - Probably Benign (Based on imaging features or behavior) Solid Nodule: >= 6 to <8mm at baseline OR new 4 to <6mm Part-solid nodule: >= 6mm toal mean diam. with solid component <6mm at baseline OR new < 6mm total mean diam. Non-solid nodule: GGN >= 30mm at baseline or new Atypical pulmonary cyst: Growing cystic component (mean diam.) of thick-walled cyst Category 4A nodule stable or decreased in size at 3-month follow-up CT (excl.ai rway). 4A - Suspicious Solid nodule: >=8 to < 15mm at baseline OR growing < 8mm OR new 6 to < 8mm Part solid nodule: >= 6mm total mean diam. w/ solid component >=6mm to < 8mm at baseline OR new or growing < 4mm solid component Airway nodule, segmental or more proximal at baseline or new Atypical pulmonary cyst: Thick-walled OR multilocular at baseline OR becomes mu ltilocular 4B - Very Suspicious Airway nodule, segmental or more proximal, and stable or growing Solid nodule: >= 15mm at baseline OR new or growing >= 8mm Part solid nodule: Solid component >= 8mm OR new or growing >= 4mm solid compon ent Atypical pulmonary cyst: Thick-walled with growing wall thickness/nodularity OR Growing multilocular (mean diam.) OR Multilocular with increased loculation or new/increased opacity Slow-growing solid or part solid nodule w/ growth over multiple screening exams 4X - Very Suspicious Category 3 or 4 nodules with additional features that increase the suspicion fo r lung cancer. S - Clinically Significant or potentially significant findings (non-lung cancer ) [facility]
== END | disposition home or self-care (01) ==
LOC: CT 15:45
PROVIDERS: PCP Family Medicine; Referring Provider Family Medicine; Visit Provider Family Medicine
DX: Z12.2 Encounter for screening for malignant neoplasm of respiratory organs (principal); F17.200 Nicotine dependence, unspecified, uncomplicated
CPT/HCPCS: 71271

== ENCOUNTER 2024-12-02 17:30 | Outpatient (RCR) | payer OTHER, SELFPAY ==
--- NOTE | 2024-10-14 16:54 | HP.PTEVAL ---
Patient's Visit Information Visit Information Visit Information: NESTOR SIFUENTES is a 58 year old F referred to Physical Therapy by Dr. Milton Blanco MD with a diagnosis of POSTURAL ABNORMALITY ,LG LENGTH DISCREPANCY. Date of Evaluation: 10/14/24 Physical Therapist: Tho Conte PT, Cert MDT, OCS Visit Plan Frequency: 1x/Week Duration: 8 WEEKS Plan: PT INTERVENTIONS DLS ,POSTURAL EX'S , HIP STRENGTHENING LEFT ,MUSCLE ENERGY ISOMETRICS AND FUNCTIONAL STRENGTHENING Subjective Subjective: This 58 y/o female presents to physical therapy with postural abnormality. Patient has problem with low back pain with left leg shorter ~ 1 year. Patient routine physical and recommended PT. No imaging or medication. Patient aggravating factors standing ,occasional lifting. Alleviating factors walking. Coughing/sneezing - . Bowel/bladder -. Sleeping okay. No injury or trauma . Patient condition affects QOL and function.Patient goal improve strength and posture and joint injury SOCIAL: VOCATION: [employer] Objective Objective: POSTURE: mild forward posture ,left leg slightly shorter GAIT: reciprocal pattern PALAPTION: unremarkable SYMMETRIES: + lumbar flexion test right PSIS stuck MMT: quads/hams 4/5 ,right hip 4/5 (peak force) left hip flexion left 32.8 ,hip abduction 23.8 FLEXABILITY: hamstrings min loss ,piriformis min tight PROM HIP IR: 45 degrees LUMBAR ROM: flexion WFL ,extension min loss ,side glides min loss Special Tests L/S Slump test left side: Negative L/S Slump test right side: Negative L/S Left Straight Leg Raise: Negative L/S Right Straight Leg Raise: Negative Lumbar Standing: Flexion - Mechanical Response: No effect Lumbar Standing: Flexion - Symptoms During Testing: No effect Lumbar Standing: Flexion - Symptoms After Testing: No effect Lumbar Standing: Extension - Mechanical Response: No effect Lumbar Standing: Extension - Symptoms During Testing: No effect Lumbar Standing: Extension - Symptoms After Testing: No effect Lumbar Standing: Right Side Glides - Mechanical Response: No effect Lumbar Standing: Right Side [place] - Symptoms During Testing: No effect Lumbar Standing: Right Side [place] - Symptoms After Testing: No effect Lumbar Standing: Left Side [place] - Mechanical Response: No effect Lumbar Standing: Left Side [place] - Symptoms During Testing: No effect Lumbar Standing: Left Side [place] - Symptoms After Testing: No effect Balance/Special Test Scores Oswestry Low Back Score: 10 Goals Goal 1:: Patient to be I with strengthening Goal Time Frame: 4-6 Weeks Goal 2:: Patient to demonstrate 75% improvement with less pain and improved function Goal Time Frame: 4-6 Weeks Goal 3:: Patient to improve strength peak force left hip by 5-10# to improve function Goal Time Frame: 4-6 Weeks Goal 4:: Patient to improve back oswestry score by 5 points to improve QOL and function Goal Time Frame: 4-6 Weeks Rehabilitation Potential Physical Therapy Diagnosis: This patient has has asymmetries with left lumbar pain with weakness left hip thus benefit from skilled PT Rehabilitation Potential: Good Anticipated Interventions Patient/Client Instruction: Educate patient on: Condition and Plan of Care For the Purpose of:: To decrease pain, To increase ROM, To improve muscle performance and motor function, To improve ability to perform ADL's, To increase tolerance to activity/condition/position, To improve ability of physical actions for home/community/work/leisure, To improve health of tissue, To decrease soft tissue restriction and To increase flexibility/ROM Therapeutic Exercise to Include: Strength training, Active ROM and Dynamic Lumbar Stabilization Comment: HIP STRENGTHENING For the Purpose of:: To decrease pain, To improve muscle performance and motor function, To improve ability to perform ADL's, To increase tolerance to activity/condition/position, To improve ability of physical actions for home/community/work/leisure, To improve health of tissue, To decrease soft tissue restriction, To increase flexibility/ROM, To reduce risk of recurrence, To prevent re-injury and To improve tolerance to ADL's Text: Thank you for the opportunity to evaluate your patient. For Medicare and Medicare HMO plans, please review the plan of care and approve it. It will need to be FAXED BACK to us at [phone] for Medicare purposes. For Medicare only, by signing this I certify the plan of care. Please let me know if there are questions or concerns regarding this plan of care. Physician Signature: Date:
--- NOTE | 2024-12-02 18:26 | HP.PTDCSUM ---
Discharge Summary D/C summary: It has been my pleasure to treat NESTOR SIFUENTES referred by Dr. Milton Blanco MD, with the diagnosis of POSTURAL ABNORMALITY ,LG LENGTH DISCREPANCY for a total of 8 visit(s). Discharge Date: 12/02/24 Please see the following information for a summary of their discharge status. Subjective Subjective: Patient has improved a lot Doing better with every tasks , able to do mopping and housework tasks Pain low back: Pain Intensity (Out of 10): 0 Overall Improvement % Improvement: 60 Objective Objective/Function: POSTURE: mild forward posture ,left leg slightly shorter GAIT: reciprocal pattern PALAPTION: unremarkable SYMMETRIES: + lumbar flexion test right PSIS stuck MMT: quads/hams 4/5 ,right hip 4/5 (peak force) left hip flexion left 49.9 ,hip abduction 34.7 FLEXABILITY: hamstrings min loss ,piriformis min tight PROM HIP IR: 45 degrees LUMBAR ROM: flexion WFL ,extension WFL ,side glides min loss Goals Goal 1:: Patient to be I with strengthening Goal Progress: Goal Met Goal 2:: Patient to demonstrate 75% improvement with less pain and improved function Goal Progress: Goal Met Goal 3:: Patient to improve strength peak force left hip by 5-10# to improve function Goal Progress: Goal Met Goal 4:: Patient to improve back oswestry score by 5 points to improve QOL and function Goal Progress: Goal Met Plan Plan: D/C D/C Information Discharge Comments: HEP d/c sentence: If there are questions or concerns regarding this patient's physical therapy, please feel free to call me at [phone]. Thank you for the referral of this patient. Sincerely, Tho Conte, PT, Cert MDT, OCS Balance/Gait/Functional tests Balance/Special Test Scores Oswestry Low Back Score: 0 Improvement % Improvement: 60
== END 2024-12-02 19:00 | disposition home or self-care (01) ==
LOC: PT 17:30
PROVIDERS: PCP Family Medicine; Referring Provider Family Medicine; Visit Provider Family Medicine
DX: M21.751 Unequal limb length (acquired), right femur (principal); R29.3 Abnormal posture
CPT/HCPCS: 97110; 97162; 97530

== ENCOUNTER → 2025-07-15 | Outpatient (CLI) | payer OTHER, SELFPAY ==
--- NOTE | 2025-07-15 16:21 | BI_ITS ---
EXAM: BI/SCRN MAMM (CAD)W/KIT BILAT
== END | disposition home or self-care (01) ==
LOC: OPBI 16:19
PROVIDERS: PCP Family Medicine; Referring Provider Family Medicine; Visit Provider Family Medicine
DX: Z12.31 Encounter for screening mammogram for malignant neoplasm of breast (principal)
CPT/HCPCS: 77063; 77067